=== PATIENT | female | born 1950 | race Caucasian/White ===

== ENCOUNTER 2025-01-27 15:53 | Emergency (ER) | payer MEDICARE, OTHER ==
[2025-01-27 16:10] VITALS: TEMP 97
[2025-01-27] MEDS ORDERED: XYLOCAINE 1% HCL 20 ML MDV ONE (16:48)
[2025-01-27] MEDS ORDERED: Adacel Vial IM ONE (16:48)
[2025-01-27] MEDS: Adacel Vial IM ONE (16:49)
--- NOTE | 2025-01-27 18:37 | XRAY ---
CLINICAL HISTORY: fall, hit head, lac, lower back krystyna COMPARISON: None. TECHNIQUE: Axial non-contrast CT scan of the brain was performed from the skull base to the high parietal region. One of the following dose reduction techniques was utilized for this exam: automated exposure control, adjustment of the mA and/or kV according to patient size, or use of iterative reconstruction. CTDI: 53.92 mGy, DLP: 1016.25 mGy-cm. FINDINGS: Brain Parenchyma: There is evidence of moderate white matter vasogenic edema involving the left parieto-occipital lobes and the left middle cerebellar peduncle, with the presence of a few suspicious cortical and subcortical hyperdensities/possible small occult space-occupying lesions (SOLs). In accordance with the patient's history, underlying metastatic disease is highly suggested; further assessment by contrast MRI is advised. There is resultant mild mass effect in the form of effacement of the overlying cortical sulci and indentation of the left occipital horn. There is no evidence of acute infarct or hemorrhage. A tiny, rounded focus of CSF density in the right basal ganglia could represent a prominent perivascular space rather than an old lacunar infarct. Ventricular System: The ventricles are prominent in size and configuration. There is no evidence of hydrocephalus or ventricular enlargement. Subarachnoid Spaces: The sulci and cisterns are widened. There is no evidence of subarachnoid hemorrhage or extra-axial fluid collections. Cerebellum and Brainstem: There are no masses, lesions, or areas of abnormal density. Orbits: There is normal appearance of the globes, optic nerves, and extraocular muscles. There is no evidence of orbital masses or abnormal density. Sinuses: The paranasal sinuses are clear. There is no evidence of sinusitis or mucosal thickening. Mastoid Air Cells: The mastoid air cells are clear. There is no evidence of mastoiditis. Skull: Normal skull morphology. IMPRESSION: 1. There is no evidence of acute fractures or hemorrhage. 2. There is evidence of moderate white matter vasogenic edema involving the left parieto-occipital lobes and the left middle cerebellar peduncle, with the presence of a few suspicious cortical and subcortical hyperdensities/possible small occult SOLs. In accordance with the patient's history, underlying metastatic disease is highly suggested; further assessment by contrast MRI is advised. 3. Senile involutional changes. Electronically Signed by: Loyd Parekh MD. (01/27/2025 18:35:55 EDT)
--- NOTE | 2025-01-27 18:39 | XRAY ---
CLINICAL HISTORY: fall, hit head, lac, lower back krystyna COMPARISON: none. TECHNIQUE: CT non-contrast scan of the lumbar spine was performed. Axial images were obtained with reformatted coronal and sagittal images and submitted for interpretation. One of the following dose reduction techniques was utilized for this exam: automated exposure control, adjustment of the mA and/or kV according to patient size, and use of iterative reconstruction. FINDINGS: Vertebrae: There is normal alignment of the lumbar vertebrae. L4 vertebral body compression accounts for 30% height regression. There is diffuse osteopenia of the examined bones. Intervertebral Discs: There is mild spondylosis of the lumbar spine with marginal osteophytosis and multilevel disc calcifications. There are multilevel disc bulges, more evident at L1-L2, L4-L5, and L5-S1, with disc bulge abutting the ventral theca and mild bilateral exit neural foraminal narrowing noted. L3-4 posterior annular calcification is noted. Spinal Canal and Neural Foramina: The spinal canal is of normal caliber with no evidence of spinal stenosis. Neural foramina are patent bilaterally at all levels. There is no evidence of nerve root compression. There is no exiting nerve root or spinal cord compression. Normal morphology of the ligamentum flavum is seen. There is no significant spinal canal or neural foraminal stenosis. Facet Joints: L4-5 and L5-S1 bilateral facet joint osteoarthritis and bony hypertrophy are noted. Soft Tissues: There is normal appearance of the paraspinal soft tissues. No abnormal masses, fluid collections, or signs of inflammation are seen. There are diffuse aortic atherosclerotic changes. IMPRESSION: 1. L4 vertebral body compression accounting for 30% height regression. 2. Multilevel disc bulges. MRI assessment would be recommended, if warranted. 3. L4-L5 and L5-S1 bilateral facet joint osteoarthritis. 4. Diffuse osteopenia of the examined bones. Electronically Signed by: Loyd Parekh MD. (01/27/2025 18:37:23 EDT)
--- NOTE | 2025-01-27 18:47 | XRAY ---
CLINICAL HISTORY: fall, hit head, lac, lower back krystyna COMPARISON: No previous studies are available for comparison. TECHNIQUE: CT scan of the cervical spine was performed without the administration of intravenous contrast. Contiguous axial images were obtained from the skull base to the upper thoracic spine. Coronal and sagittal reformatted images were also reviewed. One of the following dose reduction techniques was utilized for this exam: automated exposure control, adjustment of the mA and/or kV according to patient size, and use of iterative reconstruction. FINDINGS: Vertebrae: Anterior cervical discectomy and fusion, with internal fixation using a metallic plate and screws, and C4-5 down to C6-7 disc cages. Straightening of the cervical curvature, denoting muscle spasm. Mild degenerative anterior spondylolisthesis of the C3/C4 vertebra. Diffuse osteopenia. Degenerative changes of the spine with marginal bone hypertrophy of the vertebral endplates and narrowed disc spaces. Osteoarthritic changes of the atlantoaxial joint. The vertebral bodies are normal in height and alignment. No evidence of acute fracture or dislocation. No signs of lytic or sclerotic lesions. Normal configuration of the posterior elements. Intervertebral Discs: The intervertebral disc spaces are narrowed. C2-3 and C3-4 posterior disc bulges, causing bilateral moderate to severe foraminal stenosis, resulting in compression of the exiting nerve roots. Uncovertebral and Facet Joints: Bilateral multilevel uncovertebral and facet arthropathies, causing bilateral moderate to severe foraminal stenosis. Prevertebral Soft Tissues: The prevertebral soft tissues are normal in thickness without evidence of mass or abnormal fluid collection. Additional Findings: No other significant findings are noted in the visualized soft tissue structures or bony elements. Clear upper chest cuts. IMPRESSION: 1. No evidence of acute fractures or dislocations. 2. Anterior cervical discectomy and fusion, with internal fixation using a metallic plate and screws, and C4-5 down to C6-7 disc cages. 3. Straightening of the cervical curvature, denoting muscle spasm. 4. Mild degenerative anterior spondylolisthesis of the C3/C4 vertebra. 5. Degenerative changes of the spine with C2-3 and C3-4 disc bulges, multilevel uncovertebral and facet arthropathies, causing varying degrees of bilateral moderate to severe foraminal stenosis, resulting in compression of the exiting nerve roots. 6. Osteoarthritic changes of the atlantoaxial joint. Electronically Signed by: Loyd Parekh MD. (01/27/2025 18:46:31 EDT)
--- NOTE | 2025-01-27 18:47 | XRAY ---
CLINICAL HISTORY: fall, hit head, lac, lower back krystyna COMPARISON: No prior studies are available for comparison. TECHNIQUE: Multiple contiguous nonenhanced CT scans of the pelvis and both hip joints were performed in the axial plane with multiplanar reconstructions. One of the following dose reduction techniques was utilized for this exam: automated exposure control, adjustment of the mA and/or kV according to patient size, and use of iterative reconstruction. FINDINGS: Bones: A small, well-corticated bone is seen related to the superior surface of the right acetabulum, possibly representing a bone chip or os acetabuli. Decreased bone density is noted. Normal alignment of the pelvic bones, femoral heads, necks, and acetabula is observed. There are no displaced fractures, dislocations, lytic lesions, or sclerotic lesions. There is no evidence of avascular necrosis of the femoral heads. Cortical irregularities and bony hypertrophy are seen at both ischial bones, as well as the greater and lesser trochanters bilaterally (enthesopathies). Joints: Degenerative changes are present in both hip joints, manifested by narrowing of the joint space, subchondral cystic changes, and osteophyte formation of the articulating surfaces. There is no evidence of joint effusions or intra-articular loose bodies. Osteitis pubis is present. Soft Tissues: An encysted fluid collection is seen in the lateral aspect of the left hip joint related to the lateral portions of the gluteus muscle, with mild associated fat smudging. The collection measures approximately 11 x 35 mm and is most likely trochanteric bursitis. Mild subcutaneous edematous changes are present. No abnormal masses are identified. Additional findings: Degenerative changes are identified in the visualized lumbar spine. Bilateral L4-5 and L5-S1 facet arthropathy is noted. L5-S1 intradiscal calcification is present. Post-hysterectomy status. No operative bed collections are seen. Multiple pelvic calcific foci are present. Colonic gaseous distension with fecal loading is noted. A small umbilical hernia contains omental fat. Atheromatous calcification of the visualized aorta and iliac arteries is present. A small calcified focus is seen related to the anterior surface of the right psoas muscle, likely olive. IMPRESSION: 1. A small, well-corticated bone is seen related to the superior surface of the right acetabulum, possibly os acetabuli. 2. Otherwise, no displaced fracture or dislocation is identified. 3. An encysted fluid collection is seen in the lateral aspect of the left hip joint related to the lateral portions of the gluteus muscle with mild associated fat smudging, most likely left trochanteric bursitis. 4. Osteopenia. 5. Degenerative changes in both hip joints. 6. Osteitis pubis. 7. Cortical irregularities and bony hypertrophy at both ischial bones and the greater and lesser trochanters bilaterally (enthesopathies). 8. Post-hysterectomy status. No operative bed collections are seen. Electronically Signed by: Loyd Parekh MD. (01/27/2025 18:45:54 EDT)
--- NOTE | 2025-01-27 19:51 | XRAY ---
Indication: Bruising following fall. Comparison: None 3 nonweightbearing views left foot demonstrates nondisplaced fracture base 5th metatarsal. Elsewhere osteopenia and mild 1st MTP bunion deformity.
[2025-01-27 20:17] VITALS: BP 150/91; PULSE 60; RESP 20
[2025-01-27 20:19] VITALS: O2SAT 97
--- NOTE | 2025-01-27 20:19 | ERPHSYRPT ---
- History of Present Illness Time Seen by Provider: 01/27/25 15:55 Source: patient, family, EMS Patient Subjective Stated Complaint: pt here for a fall today, she states she lost her balance and fell back striking her head, she denies loc. pt has laceration to back of head Triage Nursing Assessment: pt arrived per ambulance alert and oriented to person place and time, she has dried blood to back of head withe a alceration, no active bleeding, resp easy, skin w/d/p. has splint to right arm she states that arm is flaccid, port a cath to right side of chest, Physician History: HISTORY OF PRESENT ILLNESS 74-year-old female with a history of seizures, hyperlipidemia, arthritis, breast cancer with brain metastasis, lymphedema, residual upper and lower extremity deficits, and progressive weakness was brought in by EMS after a ground-level fa ll. History was obtained from the patient, her , and EMS. She has experienced multiple recent falls and has difficulty ambulating at home. Imaging reviewed during this visit included CT pelvis showing a small well-corticated bone related to the right acetabulum (possible os acetabuli), encysted fluid collection lateral to the left hip (likely left trochanteric bursitis), osteopenia, degenerative changes in both hips, osteitis pubis, enthesopathies, and post-hysterectomy status without displaced fracture or dislocation; CT L- spine revealed L4 vertebral body compression with 30% height loss, multilevel disc bulges, bilateral facet joint osteoarthritis, and diffuse osteopenia; CT head demonstrated moderate white matter vasogenic edema and suspicious hyperdensities suggestive of metastatic disease; CT C-spine showed prior anterior cervical discectomy and fusion, straightened cervical curvature, mild degenerative spondylolisthesis, disc bulges, facet arthropathies, bilateral foraminal stenosis with nerve root compression, and atlantoaxial osteoarthritis; X-ray foot confirmed a fifth metatarsal fracture. She denies new numbness, tingling, weakness, nausea, vomiting, chest pain, or shortness of breath. HEALTHCARE PROVIDERS - Neurosurgeon Dr. Mar ([facility] [place] spine) PAST MEDICAL HISTORY - Seizure disorder - Hyperlipidemia - Arthritis - Breast cancer with brain metastasis - Lymphedema - Residual upper and lower extremity deficits - Progressive weakness PAST SURGICAL HISTORY - Orthopedic hardware and splint placement, right upper extremity - Hysterectomy - Anterior cervical discectomy and fusion with internal fixation (C4-5 to C6-7) SOCIAL HISTORY - Difficulty ambulating within the home - Multiple recent falls RELEVANT SOCIAL DETERMINANTS OF HEALTH - Patient has difficulty moving around the house, which may impact her ability to access care and increases risk for falls. - Multiple recent falls reported, indicating ongoing mobility challenges in the home environment. Allergies/Adverse Reactions: adhesive tape Allergy (Verified 01/27/25 15:56) codeine Allergy (Verified 01/27/25 15:56) fentanyl Allergy (Verified 01/27/25 15:56) Home Medications: Atorvastatin Calcium 40 mg PO DAILY 12/13/24 [History] Duloxetine HCl 60 mg PO DAILY 12/13/24 [History] Lactulose 10 gm PO DAILY PRN PRN 12/13/24 [History] Morphine Sulfate [Morphine Sulfate ER] 60 mg PO TID 12/13/24 [History] Ondansetron ODT 4 MG [Zofran Odt 4 mg] 8 mg PO Q6H PRN PRN 12/13/24 [History] Oxycodone HCl 15 - 45 mg PO Q2H/PRN PRN 12/13/24 [History] Pregabalin 300 mg PO BID 12/13/24 [History] Prochlorperazine Maleate 5 mg* [Compazine 5 MG] 10 mg PO Q6H PRN PRN 12/13/24 [History] Sertraline HCl 50 mg [Zoloft 50 mg Tablet] 50 mg PO DAILY 12/13/24 [History] Hx Tetanus, Diphtheria Vaccination/Date Given: No Hx Influenza Vaccination/Date Given: Yes Hx Pneumococcal Vaccination/Date Given: Yes Immunizations Up to Date: Yes Travel Risk - International Travel Have you traveled outside of the country in past 3 weeks: No - Emerging Infectious Disease Are you exhibiting symptoms associated with any current EIDs: No - Past Medical History Pertinent Past Medical History: Yes Neurological History: Seizures Cardiac History: High Cholesterol Musculoskeletal History: Arthritis Psycho-Social History: Anxiety, Depression Female Reproductive Disorders: Breast Cancer Other Medical History: breast cancer dx 2020, 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, brain cancer x6 tumors, lymphedema - Past Surgical History Past Surgical History: Yes Cardiac: Valve Replacement Musculoskeletal: Orthopedic Surgery Other Surgical History: ICD, spinal surgery- plate placement, tmj surgery - Social History Smoking Status: Never smoker Exposure to second hand smoke: No Drug Use: none - Social Determinants of Health Will the patient participate in the screening: Yes Do you worry about a steady place to live?: No Do you have any problems with any of the following?: No known problems In the past 12 months,have you had to go without utilities?: No Transportation Issues: No Has anyone in your support network made you feel unsafe?: No Have you or anyone in your house had to go w/o enough food: No - Nursing Vital Signs Nursing Vital Signs: Initial Vital Signs Temperature 97.0 F 01/27/25 16:09 Pulse Rate 62 01/27/25 16:09 Respiratory Rate 16 01/27/25 16:09 Blood Pressure 126/65 01/27/25 16:09 O2 Sat by Pulse Oximetry 97 01/27/25 16:09 Pain Scale Pain Intensity 4 - Physical Exam SpO2: 97 Comments: 01/27/25 20:21 PHYSICAL EXAM Vitals: Reviewed in chart. General: Alert and oriented; no acute distress. HEENT: Normocephalic. Respiratory: Respirations are non-labored; symmetrical chest wall expansion. Cardiovascular: Chest wall nontender and soft; 2+ radial pulses. GI: Abdomen soft, nontender, nondistended. Integumentary: Bleeding from scalp; skin tear without laceration; wound cleansed by nursing. Musculoskeletal: Bruising of right foot; lower spinal tenderness; orthopedic hardware and splint of right upper extremity. Neurologic: Pupils equal and reactive bilaterally; no facial droop. Baseline neurological status per patient. Does have baseline weakness of the right upper and lower extremities. No facial droop. GCS 15. A and O x 3. Moving all extremities. Denies bowel or bladder incontinence. Slightly decreased sensation in the right upper and lower extremity with patient states this is chronic. Psychiatric: Appropriate. Procedures - Splinting Location of Splint: Left, Foot Type of Splint: Orthoglass Short Leg Splint Ordered Tests: Active Orders 24 hr Category Date Time Status CERVICAL SPINE WO CONTRAST [CT] Stat Exams 01/27/25 17:23 Completed FOOT (MINIMUM 3 VIEWS) Stat Exams 01/27/25 18:38 Completed HEAD WITHOUT CONTRAST [CT] Stat Exams 01/27/25 17:24 Completed LUMBAR SPINE W/O [CT] Stat Exams 01/27/25 17:28 Completed PELVIS WITHOUT CONTRAST [CT] Stat Exams 01/27/25 17:30 Completed Medication Summary Discontinued Medications Generic Name Dose Route Start Last Admin Trade Name Kwabena PRN Reason Stop Dose Admin Diphtheria/Tetanus/Acell Pertussis 0.5 ml 01/27/25 16:07 01/27/25 16:49 Tdap --Diph,Pertuss(Acell),Tet Vac/Pf 0.5 Ml Vial IM 01/27/25 16:08 0.5 ml .ONCE ONE Administration Diphtheria/Tetanus/Acell Pertussis Confirm 01/27/25 16:48 Tdap --Diph,Pertuss(Acell),Tet Vac/Pf 0.5 Ml Vial Administered 01/27/25 16:49 Dose 0.5 ml IM .STK-MED ONE Lidocaine HCl Confirm 01/27/25 16:48 Lidocaine Hcl 1% 20 Ml Mdv 20 Ml Ml Administered 01/27/25 16:49 Dose 1 ml .ROUTE .STK-MED ONE - Progress Progress Note: 01/27/25 20:22 SUMMARY 74-year-old female with metastatic breast cancer and prior cervical spine fusion presented after ground-level fall. Imaging revealed right fifth metatarsal fracture, L4 vertebral body compression (30% height loss), left trochanteric bursitis, osteopenia, degenerative changes in hips and spine, and CT head findings consistent with metastatic brain disease. Exam showed right foot bruising, lower spinal tenderness, and scalp skin tear; no new neurologic deficits. Neurosurgery reviewed L-spine imaging and advised outpatient follow- up. Posterior short leg splint applied; scalp wound cleansed. Discharged home with strict return precautions and outpatient follow-up for injuries and underlying disease. IMAGING I contemporaneously reviewed the CT pelvis (radiologist report) as demonstrating a small, well-corticated bone related to the superior surface of the right acetabulum (possibly os acetabuli), no displaced fracture or dislocation, encysted fluid collection lateral left hip (likely left trochanteric bursitis), osteopenia, degenerative changes both hips, osteitis pubis, cortical irregularities and bony hypertrophy at ischial bones and trochanters (enthesopathies), post-hysterectomy status, and no operative bed collections. I contemporaneously reviewed the CT L-spine (radiologist report) as demonstrating L4 vertebral body compression (30% height regression), multilevel disc bulges, L4-L5 and L5-S1 bilateral facet joint osteoarthritis, and diffuse osteopenia. I contemporaneously reviewed the CT head (radiologist report) as demonstrating no acute fracture or hemorrhage, moderate white matter vasogenic edema involving the left parieto-occipital lobes and left middle cerebellar peduncle, suspicious cortical and subcortical hyperdensities/possible small occult space- occupying lesions (suggestive of metastatic disease), and senile involutional changes. I contemporaneously reviewed the CT C-spine (radiologist report) as demonstrating no acute fracture or dislocation, anterior cervical discectomy and fusion with internal fixation (metallic plate/screws, C4-5 to C6-7 disc cages), straightening cervical curvature (muscle spasm), mild degenerative anterior spondylolisthesis C3/C4, degenerative changes with C2-3 and C3-4 disc bulges, multilevel uncovertebral and facet arthropathies, bilateral moderate to severe foraminal stenosis with nerve root compression, and osteoarthritic changes atlantoaxial joint. I contemporaneously reviewed the X-ray foot (radiologist report) as demonstrating fifth metatarsal fracture. PATIENT DISCUSSION I discussed available results with the patient and her . We reviewed imaging findings, including the right fifth metatarsal fracture, L4 vertebral body compression, evidence of metastatic brain disease, left trochanteric bursitis, osteopenia, degenerative changes of the hips and spine, and other relevant findings. The plan for outpatient neurosurgery follow-up, wound care, and discharge home was explained. All questions were addressed. MEDICAL DECISION MAKING This 74-year-old female with a complex medical history, including metastatic breast cancer with brain involvement, seizures, progressive weakness, and prior cervical spine fusion, presented after a ground-level fall. Imaging revealed a right fifth metatarsal fracture, L4 vertebral body compression with 30% height loss, and findings consistent with metastatic brain disease. Additional studies showed left trochanteric bursitis, osteopenia, degenerative changes in the hips and spine, and no acute intracranial hemorrhage or displaced fractures. Management focused on stabilization and injury care. A posterior short leg splint was applied for the foot fracture, and her scalp wound was cleansed by nursing staff. Neurologic and musculoskeletal exams were notable for lower spinal tenderness and bruising, but no new focal deficits or acute neurologic changes. [facility] neurosurgery, Dr Mar reviewed the L-spine imaging and did not recommend transfer; outpatient follow-up was advised. The patient denied new numbness, tingling, or focal weakness, and her pain was controlled. Dr. Mar believes her symptoms may be due to the brain vasogenic edema instead of the lumbar compression fracture. Given her stable exam, absence of acute surgical indications, and support at home, discharge with outpatient follow-up was deemed appropriate. The plan was discussed with the patient and , and strict return precautions were provided. Her multiple comorbidities and history of falls were considered in disposition, with emphasis on close monitoring and follow-up for potential progression of underlying metastatic disease and spinal pathology. Of note, patient does not want to be admitted. She would like to go home. Patient's takes care of her. She is not interested in placement at this time. DISPOSITION Discharge: Home Discussion: Discharge instructions and follow-up plan reviewed with patient and . Condition: stable Patient is resting well. Discussed case in detail and all results reviewed. Patient agrees with out-patient follow up for further evaluation of their condition. I explained medical problems represent dynamic processes and my evaluation today represents a single point in time and that the problem may evolve. The patient asked questions and I answered until my diagnosis, concerns and plan for treatment were fully understood. The patient is awake, alert, oriented, coherent, and lucid. The patient is comfortable with following up for further evaluation of their condition. Patient verbalized understanding and agrees with plan. 01/27/25 20:25 - Departure Departure Disposition: Home Clinical Impression: Fall, Lumbar compression fracture, Osteopenia, Vasogenic brain edema, Fracture of fifth metatarsal bone Condition: Fair Critical Care Time: No Referrals: VIRAJ TABOR MD [Primary Care Provider, [facility]] - Follow up/PCP as directed Instructions: Preventing falls in adults Additional Instructions: Please follow-up with your spine surgeon at [facility] [place] for further evaluation. I spoke with Dr. Mar with spine surgery today and he did not recommend transfer. Please follow-up with orthopedic clinic tomorrow morning, they have walk-in hours from 8 AM to 10 AM. You have a foot fracture of your left foot. Please call the patient's PCP office tomorrow, follow-up with your primary care doctor in the next few days. Please return to the ED if the patient has any new, worsening, or ongoing symptoms, or if their symptoms are not improving as expected.
== END 2025-01-27 20:25 | disposition home or self-care (01) ==
LOC: ED 15:53
DX: S32.040A Wedge compression fracture of fourth lumbar vertebra, initial encounter for closed fracture (principal); S92.351A Displaced fracture of fifth metatarsal bone, right foot, initial encounter for closed fracture; W01.0XXA Fall on same level from slipping, tripping and stumbling without subsequent striking against object, initial encounter; M85.80 Other specified disorders of bone density and structure, unspecified site; G93.6 Cerebral edema; R29.6 Repeated falls; Z79.899 Other long term (current) drug therapy; Z23 Encounter for immunization

== ENCOUNTER 2025-03-09 14:46 | Emergency (ER) | payer MEDICARE, OTHER ==
[2025-03-09 15:24] VITALS: RESP 20; TEMP 97.6
[2025-03-09 15:36] VITALS: PULSE 76
--- NOTE | 2025-03-09 15:52 | ERPHSYRPT ---
- History of Present Illness Patient Subjective Stated Complaint: patient ws t home and about an hour ago she fell and shes complaining of pain in her right foot Triage Nursing Assessment: patient brought into ED today by he is concerned she fell earlier and shes complaining of pain in her right foot. he wants to make sure shes not hurt. patient says she is also having some nausea in her stomach. skin warm dry and intact, small scrape to the left hand. Physician History: Fall, patient lost her balance and fell, Patient has history of brain CA that was recently biopsied, she frequently loses her balance, she has a previous history of a left foot injury and reinjured that side, she recently had a right proximal humerus fracture she does have some pain on that shoulder, she apparently did not hit her head per the but the patient states she think she hit her head, she is not on blood thinners, she had no loss consciousness Occurred: just prior to arrival Reason for Fall: lost balance Injuries/Pain Location: upper extremity (right shoulder), lower extremity (left foot) Loss of Consciousness: no loss of consciousness Severity of Pain-Max: mild Severity of Pain-Current: mild Allergies/Adverse Reactions: adhesive tape Allergy (Verified 03/09/25 15:14) codeine Allergy (Verified 03/09/25 15:14) fentanyl Allergy (Verified 03/09/25 15:14) Home Medications: Atorvastatin Calcium 40 mg PO DAILY 12/13/24 [History] Duloxetine HCl 60 mg PO DAILY 12/13/24 [History] Lactulose 10 gm PO DAILY PRN PRN 12/13/24 [History] Morphine Sulfate [Morphine Sulfate ER] 60 mg PO TID 12/13/24 [History] Ondansetron ODT 4 MG [Zofran Odt 4 mg] 8 mg PO Q6H PRN PRN 12/13/24 [History] Oxycodone HCl 15 - 45 mg PO Q2H/PRN PRN 12/13/24 [History] Pregabalin 300 mg PO BID 12/13/24 [History] Prochlorperazine Maleate 5 mg* [Compazine 5 MG] 10 mg PO Q6H PRN PRN 12/13/24 [History] Sertraline HCl 50 mg [Zoloft 50 mg Tablet] 50 mg PO DAILY 12/13/24 [History] dexAMETHasone [Dexamethasone] 1 tape PO TID 03/09/25 [History] Hx Tetanus, Diphtheria Vaccination/Date Given: No Hx Influenza Vaccination/Date Given: Yes Hx Pneumococcal Vaccination/Date Given: Yes Travel Risk - International Travel Have you traveled outside of the country in past 3 weeks: No - Emerging Infectious Disease Are you exhibiting symptoms associated with any current EIDs: No - Past Medical History Pertinent Past Medical History: Yes Neurological History: Seizures Cardiac History: High Cholesterol Musculoskeletal History: Arthritis Psycho-Social History: Anxiety, Depression Female Reproductive Disorders: Breast Cancer Other Medical History: breast cancer dx 2020, 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, brain cancer x6 tumors, lymphedema - Past Surgical History Past Surgical History: Yes Cardiac: Valve Replacement Musculoskeletal: Orthopedic Surgery Other Surgical History: ICD, spinal surgery- plate placement, tmj surgery - Social History Smoking Status: Never smoker Exposure to second hand smoke: No - Social Determinants of Health Will the patient participate in the screening: Yes Do you worry about a steady place to live?: No Do you have any problems with any of the following?: No known problems In the past 12 months,have you had to go without utilities?: No Transportation Issues: No Has anyone in your support network made you feel unsafe?: No Have you or anyone in your house had to go w/o enough food: No - Nursing Vital Signs Nursing Vital Signs: Initial Vital Signs Temperature 97.6 F 03/09/25 14:46 Pulse Rate 60 03/09/25 14:46 Respiratory Rate 20 03/09/25 14:46 Blood Pressure 137/83 03/09/25 14:46 O2 Sat by Pulse Oximetry 96 03/09/25 14:46 Pain Scale Pain Intensity 7 - Physical Exam General Appearance: no apparent distress, alert, obese Head Injury: no evidence of injury Eye Exam: PERRL/EOMI ENT Exam: airway nml Neck Exam: normal inspection, No tenderness Respiratory/Chest Exam: normal breath sounds, No chest tenderness, No respiratory distress Cardiovascular Exam: normal heart sounds, regular rate/rhythm Gastrointestinal Exam: soft, No tenderness, No distention, No guarding, No ecchymosis Back Exam: normal inspection, No vertebral tenderness Extremity Exam: pelvis stable, tenderness (left foot, right shoulder), No deformities Neurologic Exam: alert, oriented x 3, cooperative, sensation nml, No motor de ficits Skin Exam: normal color, warm, dry SpO2 Interpretation: normal SpO2: 95 - Radiology Exams Shoulder X-ray Interpretation: Interpreted by me, Other (Midshaft humeral fracture with callus formation) Left Foot X-ray Interpretation: Interpreted by me, Other (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) Right Foot X-ray Interpretation: Interpreted by me, No Fracture Ordered Tests: Active Orders 24 hr Category Date Time Status FOOT (MINIMUM 3 VIEWS) Stat Exams 03/09/25 15:32 Taken FOOT (MINIMUM 3 VIEWS) Stat Exams 03/09/25 15:56 Taken HEAD WITHOUT CONTRAST [CT] Stat Exams 03/09/25 15:34 Completed SHOULDER Stat Exams 03/09/25 15:32 Taken - Progress Progress Note: 03/09/25 17:39 Discussed x-ray findings, the patient had a fracture of the base of the fifth metatarsal about 2 months ago, on today's x-ray it appears that 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 (I do not see a new fracture), recommend outpatient follow-up and treatment - Departure Departure Disposition: Home Clinical Impression: Sprain of left foot Qualifiers: Encounter type: initial encounter Qualified Code(s): S93.602A - Unspecified sprain of left foot, initial encounter Contusion of shoulder, right Qualifiers: Encounter type: initial encounter Qualified Code(s): S40.011A - Contusion of right shoulder, initial encounter Head injury Qualifiers: Encounter type: initial encounter Qualified Code(s): S09.90XA - Unspecified injury of head, initial encounter Condition: Stable Critical Care Time: No Referrals: VIRAJ TABOR MD [Primary Care Provider, [facility]] - Follow up with PCP 7 days Instructions: Contusion (DC), Foot sprain - ED discharge instructions, Shoulder pain, Minor head injury in adults - ED discharge instructions Additional Instructions: Continue home medications, follow-up with primary care doctor
[2025-03-09 17:15] VITALS: BP 143/59
--- NOTE | 2025-03-09 17:30 | XRAY ---
CLINICAL HISTORY: fall COMPARISON: 01/27/2025. TECHNIQUE: Axial non-contrast CT scan of the brain was performed from the skull base to the high parietal region. One of the following dose reduction techniques was utilized for this exam: automated exposure control, adjustment of the mA and/or kV according to patient size, use of iterative reconstruction. FINDINGS: Brain Parenchyma: Stationary, moderate white matter vasogenic edema involves the left parieto-occipital lobes and the left middle cerebellar peduncle, with the presence of a few suspicious cortical and subcortical hyperdensities/possible small occult space-occupying lesions (SOLs). In accordance with the patient's history, underlying metastatic disease is highly suggested; further assessment by contrast MRI is advised. There is resultant mild mass effect in the form of effacement of the overlying cortical sulci and indentation of the left occipital horn. There is no evidence of acute infarct or hemorrhage. A stationary, tiny, rounded focus of CSF density in the right basal ganglia could represent a prominent perivascular space rather than an old lacunar infarct. Ventricular System: The ventricles are prominent in size and configuration. There is no evidence of hydrocephalus or ventricular enlargement. Subarachnoid Spaces: The sulci and cisterns are widened. There is no evidence of subarachnoid hemorrhage or extra-axial fluid collections. Cerebellum and Brainstem: There are no masses, lesions, or areas of abnormal density. Orbits: There is normal appearance of the globes, optic nerves, and extraocular muscles. There is no evidence of orbital masses or abnormal density. Sinuses: The paranasal sinuses are clear. There is no evidence of sinusitis or mucosal thickening. Mastoid Air Cells: The mastoid air cells are clear. There is no evidence of mastoiditis. Skull: A small left occipital bone defect is noted (new). IMPRESSION: 1. There is no evidence of acute fractures or hemorrhage. 2. Stationary, moderate white matter vasogenic edema involves the left parieto-occipital lobes and the left middle cerebellar peduncle, with the presence of a few suspicious cortical and subcortical hyperdensities/possible small occult SOLs. In accordance with the patient's history, underlying metastatic disease is highly suggested; further assessment by contrast MRI is advised. 3. Age-related cerebral involutional changes. 4. A small left occipital bone defect is noted (new). Electronically Signed by: Loyd Parekh MD. (03/09/2025 17:28:04 EST)
[2025-03-09 17:43] VITALS: O2SAT 95
--- NOTE | 2025-03-09 20:36 | XRAY ---
Indication: Fall. Comparison: None 3 nonweightbearing views right foot demonstrates osteopenia, mild 1st MTP bunion deformity, and tiny posterior heel spur. No other bony, articular, or soft tissue abnormalities.
--- NOTE | 2025-03-09 20:36 | XRAY ---
Indication: Fall. Comparison: None 3 nonweightbearing views left foot demonstrates osteopenia, mild 1st MTP bunion deformity, and healing nondisplaced fracture base 5th metatarsal. No other bony, articular, or soft tissue abnormalities.
--- NOTE | 2025-03-09 20:38 | XRAY ---
Indication: Fall. Comparison: December 13, 2024 3 view right shoulder again demonstrates osteopenia, moderate glenohumeral degenerative arthropathy, old angulated humeral shaft fracture, mild multilevel cervicothoracic degenerative spondylosis, C4-C7 fusion hardware, incompletely visualized left AICD, and incompletely visualized right Port-A-Cath. No new/acute findings.
== END 2025-03-09 17:58 | disposition home or self-care (01) ==
LOC: ED 14:46
DX: S93.602A Unspecified sprain of left foot, initial encounter (principal); S40.011A Contusion of right shoulder, initial encounter; S09.90XA Unspecified injury of head, initial encounter; W19.XXXA Unspecified fall, initial encounter; Z79.899 Other long term (current) drug therapy